=== PATIENT | male | born 1980 | race Caucasian/White ===

== ENCOUNTER 2016-08-24 22:56 | Inpatient (IN) | payer MEDICARE, OTHER ==
--- NOTE | ~2016-08-24 | DS ---
Unit #: [id number] #: [id number] Patient: CLARITA GRIDER [id number] [facility] [address] [place] [address] [id number] I MR#: [id number] NAME: CLARITA GRIDER ROOM: [facility] Age: 35 Sex: M Admission Date: 08/24/2016 : 1980 Discharge Date: 09/05/2016 Attending Physician: Win Webster M.D. Primary Care Physician: Primary Care Physician No DISCHARGE SUMMARY REASON FOR ADMISSION Depression. DIAGNOSTIC STUDIES LABORATORY RESULTS: Unremarkable. HOSPITAL COURSE The patient was admitted to inpatient unit on 08/24/2016 and discharged on 09/05/2016. The patient was treated on the inpatient unit with group therapy, individual therapy, medication management, responded well with the above modalities of treatment. Subsequently, the patient was discharged with a plan to follow up in outpatient program. DISCHARGE MEDICATIONS Keppra 500 mg at bedtime for seizure, Neurontin 300 mg b.i.d. for pain and anxiety, Zoloft 100 mg at bedtime for depression. DISCHARGE DIAGNOSES Psychiatric: 1. Major depressive disorder, recurrent, severe, F32.9. 2. Anxiety disorder, not otherwise specified, F41.9. 3. Agoraphobia with panic disorder, F40.01. Secondary diagnosis: Deferred. Medical diagnosis: History of seizure disorder. Stressors: Psychosocial stressors. DISCHARGE INSTRUCTIONS The patient to follow up in outpatient clinic as per social scientist. CONDITION ON DISCHARGE The patient was pleasant and cooperative. Denied any psychotic symptom or any suicidal ideation. PROGNOSIS Guarded. DIET AND ACTIVITY As tolerated. Dictated by... Unit #: [id number] #: [id number] Patient: CLARITA GRIDER Piper SawantC/yo TD: 09/06/2016 08:01 JOB #: [id number] DISCHARGE SUMMARY Page 1 of 1 X Win Webster MD X DISCHARGE SUMMARY
--- NOTE | ~2016-08-24 | PN ---
Unit #: [id number] #: [id number] Patient: NERI CUNNINGHAM [id number] [facility] [address] [place] [address] [id number] I MR#: [id number] NAME: NERI CUNNINGHAM ROOM: [facility] Age: 35 Sex: M Admission Date: 08/24/2016 : 1980 Attending Physician: Win Webster M.D. Admitting Physician: Win Webster M.D. Primary Care Physician: Primary Care Physician Munira ESPINOZA NOTES DATE 08/28/2016 DISCUSSION Neri Cunningham is a 35-year-old male, seen on 08/28/2016. The patient interviewed, chart reviewed, and obtained information from the nursing staff. The patient was compliant and cooperative. Mood was sad and dysphoric. The patient was able to maintain safe behavior. Vital signs, temperature 97.6, pulse 59, and blood pressure 103/60. The patient is still seclusive, isolative, but maintains safe behavior. REVIEW OF SYSTEMS Complete review of systems unremarkable. MENTAL STATUS EXAMINATION General appearance: Patient casually dressed. Attention span and concentration, fair. Oriented to time, place, and person. Mood and affect, sad and dysphoric. Speech, monotone. Thought process, concrete. Association, the patient denied any thoughts of harming self or others or any psychotic symptoms. Recent and remote memory, poor. Insight and judgment, poor. DIAGNOSIS Mood disorder, NOS. ASSESSMENT/PLAN Advised to continue with the current medication and therapeutic protocol and will monitor response to medication, and make further adjustment of medication. Dictated by... Piper Sawant/rose marie TD: 08/29/2016 09:17 JOB #: [id number] Unit #: [id number] #: [id number] Patient: NERI CUNNINGHAM ALEXIS NOTES X Win Webster MD PROGRESS NOTE
--- NOTE | ~2016-08-24 | PN ---
Unit #: [id number] #: [id number] Patient: NERI CUNNINGHAM [id number] [facility] [address] [place] [address] [id number] I MR#: [id number] NAME: NERI CUNNINGHAM ROOM: [facility] Age: 35 Sex: M Admission Date: 08/24/2016 : 1980 Attending Physician: Win Webster M.D. Admitting Physician: Win Webster M.D. Primary Care Physician: Primary Care Physician Munira ESPINOZA NOTES DATE OF SERVICE: 09/04/2016 DISCUSSION Neri Cunningham is a 35-year-old male, seen on 09/04/2016. The patient interviewed, chart reviewed, and obtained information from nursing staff. The patient was compliant and cooperative. Mood was sad, dysphoric, flat affect, guarded, isolative. Vital signs stable; temperature 97.9, pulse 52, and blood pressure 105/71. The patient reports making progress, decrease in anxiety and depression. Complete review of systems unremarkable. MENTAL STATUS EXAMINATION General appearance; the patient dressed casually, in hospital attire. Hygiene and grooming were somewhat poor. Attention span and concentration, fair. Oriented in place and person. Mood and affect; sad, depressed. Speech, regular rate. Thought process, goal directed. The patient denied any thoughts of harming self or others or any psychotic symptom. Recent and remote memory, poor. Insight and judgment, poor. DIAGNOSIS Major depressive disorder, recurrent. ASSESSMENT AND PLAN Advised to continue with current medication and therapeutic protocol with a plan to consider discharge next week and follow up in [facility] level of care. Dictated by... Piper Sawant/yo TD: 09/05/2016 13:33 JOB #: [id number] Unit #: [id number] #: [id number] Patient: NERI CUNNINGHAM PROGRESS NOTES Page 1 of 1 X Win Webster MD PROGRESS NOTE
--- NOTE | ~2016-08-24 | PN ---
Unit #: [id number] #: [id number] Patient: CLARITA GRIDER [id number] [facility] [address] [place] [address] [id number] I MR#: [id number] NAME: CLARITA GRIDER ROOM: [facility] Age: 35 Sex: M Admission Date: 08/24/2016 : 1980 Attending Physician: Win Webster M.D. Admitting Physician: Win Webster M.D. Primary Care Physician: Primary Care Physician Munira ESPINOZA NOTES DATE OF SERVICE: 08/30/2016 DISCUSSION Mr. He is a 35-year-old male, seen on 08/30/2016. The patient interviewed, chart reviewed, and obtained information from nursing staff. The patient's vital signs; temperature 97.7, pulse 54, respirations 20, and blood pressure 101/69. The patient reported occasional suicidal ideation with no plan. The patient has no place to go. Reported feeling sad and depressed. The patient was able to maintain safe behavior, withdrawn, isolative. Complete review of systems unremarkable. MENTAL STATUS EXAMINATION General appearance, the patient dressed casually. Attention span and concentration, fair. Oriented in time, place, and person. Mood and affect were sad, dysphoric, flat. Speech, regular rate. Thought process, goal directed. The patient denied any thoughts of harming others, but having occasional suicidal ideation, guarded, withdrawn, isolative. Recent and remote memory, poor. Insight and judgment, poor. DIAGNOSIS Major depressive disorder, recurrent. ASSESSMENT AND PLAN Advised to continue with current medication and therapeutic protocol. We will monitor response to medication and make further adjustment of medication such as increasing the dosage of Zoloft. Dictated by... Piper Sawant/yo TD: 08/30/2016 18:42 JOB #: [id number] Unit #: [id number] #: [id number] Patient: CLARITA GRIDER PROGRESS NOTES X Win Webster MD PROGRESS NOTE
--- NOTE | ~2016-08-24 | PN ---
Unit #: [id number] #: [id number] Patient: NERI CUNNINGHAM [id number] [facility] [address] [place] [address] [id number] I MR#: [id number] NAME: NERI CUNNINGHAM ROOM: [facility] Age: 35 Sex: M Admission Date: 08/24/2016 : 1980 Attending Physician: Win Webster M.D. Admitting Physician: Win Webster M.D. Primary Care Physician: Primary Care Physician Munira ESPINOZA NOTES DATE OF SERVICE: 09/02/2016 DISCUSSION Neri Cunningham is a 35-year-old male, seen on 09/02/2016. The patient interviewed, chart reviewed, and obtained information from nursing staff. The patient was compliant and cooperative. Mood was sad, dysphoric, flat affect, guarded. The patient is tolerating medication fairly well. REVIEW OF SYSTEMS Complete review of systems unremarkable. MENTAL STATUS EXAMINATION General appearance, the patient dressed casually, withdrawn, isolative, guarded. Attention span and concentration, poor. Oriented in place and person. Mood and affect, sad, and depressed. Speech, monotone. Thought process, concrete. The patient reported passive SI, but denied any plan. Denied any homicidal ideation or psychotic symptom. Recent and remote memory, poor. Insight and judgment, poor. DIAGNOSIS Major depressive disorder, recurrent. ASSESSMENT AND PLAN Advised to continue with current medication and therapeutic protocol. If needed, consider further adjustment of medication. Dictated by... Piper Sawant/yo TD: 09/03/2016 05:22 JOB #: [id number] Unit #: [id number] #: [id number] Patient: NERI CUNNINGHAM REJIAMBER PROGRESS NOTES X Win Webster MD PROGRESS NOTE
--- NOTE | ~2016-08-24 | PN ---
Unit #: [id number] #: [id number] Patient: NERI GRIDER [id number] [facility] [address] [place] [address] [id number] I MR#: [id number] NAME: NERI GRIDER ROOM: [facility] Age: 35 Sex: M Admission Date: 08/24/2016 : 1980 Attending Physician: Win Webster M.D. Admitting Physician: Win Webster M.D. Primary Care Physician: Primary Care Physician Munira ESPINOZA NOTES DATE OF SERVICE: 08/26/2016 DISCUSSION Neri is a 35-year-old male, seen on 08/26/2016. The patient interviewed, chart reviewed, and obtained information from nursing staff. The patient was compliant and cooperative. Mood, sad and dysphoric. Flat affect and guarded. The patient was sad, dysphoric, anxious, isolative, withdrawn, and nervous. REVIEW OF SYSTEMS Complete review of systems unremarkable. MENTAL STATUS EXAMINATION General appearance, the patient dressed casually. Attention span and concentration, fair. Oriented in place and person. Mood and affect, sad and dysphoric. Speech, monotone. Thought process, concrete. The patient denied any thoughts of harming self or others, but guarded, withdrawn, and seclusive. Recent and remote memory, poor. Insight and judgment, poor. DIAGNOSES Mood disorder, not otherwise specified; rule bipolar mood disorder; and anxiety disorder, not otherwise specified. ASSESSMENT AND PLAN Advised to continue with current medication and therapeutic protocol. We will monitor response to medication and make further adjustment of medication. Dictated by... Piper Sawant/yo TD: 08/27/2016 16:06 JOB #: [id number] Unit #: [id number] #: [id number] Patient: NERI GRIDER PROGRESS NOTES X Win Webster MD PROGRESS NOTE
--- NOTE | ~2016-08-24 | PN ---
Unit #: [id number] #: [id number] Patient: NERI CUNNINGHAM [id number] [facility] [address] [place] [address] [id number] I MR#: [id number] NAME: NERI CUNNINGHAM ROOM: [facility] Age: 35 Sex: M Admission Date: 08/24/2016 : 1980 Attending Physician: Win Webster M.D. Admitting Physician: Win Webster M.D. Primary Care Physician: Primary Care Physician Munira BROWN PROGRESS NOTES DATE 08/29/2016 DISCUSSION Neri Cunningham is a 35-year-old male seen on 08/29/2016. Patient interviewed. Chart reviewed. Obtained information from nursing staff. Patient continues to be sad, depressed, withdrawn, isolative, guarded. Patient continues to stay in room, isolate, minimal interaction with staff and peer. Mood sad, depressed, flat affect, guarded. Complete review of system unremarkable. MENTAL STATUS EXAMINATION General appearance, patient dressed casually. Attention span, concentration fair. Oriented in place and person. Mood and affect sad, depressed. Speech monotone. Thought process concrete. Patient reported having passive SI. Denied any homicidal ideation, withdrawn, guarded. Recent and remote memory poor. Insight and judgement poor. DIAGNOSIS Major depressive disorder, recurrent. ASSESSMENT/PLAN Continue with current medication. If needed, consider adjusting the dosage of Zoloft. Dictated by... Piper Sawant/mckenzie TD: 08/30/2016 20:44 JOB #: [id number] Unit #: [id number] #: [id number] Patient: NERI CUNNINGHAM PROGRESS NOTES X Win Webster MD PROGRESS NOTE
--- NOTE | ~2016-08-24 | PN ---
Unit #: [id number] #: [id number] Patient: NERI CUNNINGHAM [id number] [facility] [address] [place] [address] [id number] I MR#: [id number] NAME: NERI CUNNINGHAM ROOM: [facility] Age: 35 Sex: M Admission Date: 08/24/2016 : 1980 Attending Physician: Win Webster M.D. Admitting Physician: Win Webster M.D. Primary Care Physician: Primary Care Physician Munira BROWN PROGRESS NOTES DATE 09/01/2016 DISCUSSION Neri Cunningham is a 35-year-old male seen on 09/01/2016. Patient interviewed. Chart reviewed. Obtained information from nursing staff. Patient continues to report feeling sad, depressed, having suicidal thoughts. Denies any plans. Tolerating medication fairly well. Zoloft was increased yesterday. Withdrawn, isolative, guarded. Complete review of system unremarkable. MENTAL STATUS EXAMINATION General appearance, patient dressed casually. Attention span, concentration fair. Oriented in place and person. Mood and affect sad, dysphoric. Speech monotone. Thought process concrete. Patient denied any thoughts of harming others but still having thoughts of harming himself, passive. Recent and remote memory poor. Insight and judgement poor. DIAGNOSIS Mood disorder NOS. ASSESSMENT/PLAN Advised to continue with current medication and therapeutic protocol. Will monitor response to medication and make further adjustment of medication. Dictated by... Piper Sawant/mckenzie TD: 09/02/2016 19:50 JOB #: [id number] Unit #: [id number] #: [id number] Patient: NERI CUNNINGHAM PROGRESS NOTES X Win Webster MD X PROGRESS NOTE
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
--- NOTE | ~2016-08-24 | PN ---
Unit #: [id number] #: [id number] Patient: NERI CUNNINGHAM [id number] [facility] [address] [place] [address] [id number] I MR#: [id number] NAME: NERI CUNNINGHAM ROOM: [facility] Age: 35 Sex: M Admission Date: 08/24/2016 : 1980 Attending Physician: Win Webster M.D. Admitting Physician: Win Webster M.D. Primary Care Physician: Primary Care Physician Munira BROWN PROGRESS NOTES DATE OF SERVICE: 08/27/2016 DISCUSSION Neri Cunningham is a 35-year-old male, seen on 08/27/2016. The patient interviewed, chart reviewed, and obtained information from nursing staff. The patient was compliant and cooperative. Mood was sad, dysphoric, flat affect, withdrawn, isolative. Hygiene and grooming were somewhat poor. Dressed in hospital attire. Vital signs; temperature 98.2, pulse 70, respirations 16, blood pressure 102/70. The patient was participated in some of the group, but seclusive, isolative, guarded, flat affect, withdrawn. Poor interaction with staff and peer. Passive SI. Denied any psychotic symptom or any homicidal ideation. Insight and judgment, impaired. DIAGNOSIS Major depressive disorder, recurrent. ASSESSMENT AND PLAN Advised to continue with current medication and therapeutic protocol. We will monitor response to medication and make further adjustment of medication. Dictated by... Piper Sawant/yo TD: 08/29/2016 02:08 JOB #: [id number] STEPHANIE PROGRESS NOTES X Win Webster MD PROGRESS NOTE
--- NOTE | ~2016-08-24 | PN ---
Unit #: [id number] #: [id number] Patient: NERI CUNNINGHAM [id number] [facility] [address] [place] [address] [id number] I MR#: [id number] NAME: NERI CUNNINGHAM ROOM: [facility] Age: 35 Sex: M Admission Date: 08/24/2016 : 1980 Attending Physician: Win Webster M.D. Admitting Physician: Win Webster M.D. Primary Care Physician: Primary Care Physician Munira BROWN PROGRESS NOTES DATE 09/03/2016 DISCUSSION Neri Cunningham is a 35-year-old male seen on 09/03/2016. The patient interviewed, chart reviewed. Obtained information from nursing staff. The patient was compliant and cooperative. Mood sad, dysphoric, flat affect, withdrawn, sad depressed. Complete review of systems unremarkable. MENTAL STATUS EXAMINATION General appearance, the patient dressed casually. Attention span and concentration fair. Oriented to place and person. Mood and affect sad, depressed. Speech monotone. Thought process concrete. The patient denied any thoughts of harming self or others but still having passive SI, poor hygiene and grooming. Recent and remote memory poor. Insight and judgement poor. DIAGNOSES Major depressive disorder recurrent ASSESSMENT/PLAN Advise to continue with current medication and therapeutic protocol. We will monitor response to medication and make further adjustment of medication. Dictated by... Piper Sawant/bunny TD: 09/05/2016 03:01 JOB #: [id number] Unit #: [id number] #: [id number] Patient: NERI CUNNINGHAM PROGRESS NOTES X Win Webster MD PROGRESS NOTE
--- NOTE | ~2016-08-24 | PN ---
Unit #: [id number] #: [id number] Patient: NERI CUNNINGHAM [id number] [facility] [address] [place] [address] [id number] I MR#: [id number] NAME: NERI CUNNINGHAM ROOM: [facility] Age: 35 Sex: M Admission Date: 08/24/2016 : 1980 Attending Physician: Win Webster M.D. Admitting Physician: Win Webster M.D. Primary Care Physician: Primary Care Physician Munira BROWN PROGRESS NOTES DATE 08/31/2016 DISCUSSION Neri Cunningham is a 35-year-old male, seen on 08/31/2016. The patient interviewed, chart reviewed, and obtained information from the nursing staff. The patient continues to be sad, dysphoric, flat affect, withdrawn, isolative, and guarded. The patient reported still having suicidal ideation. REVIEW OF SYSTEMS Complete review of systems unremarkable. MENTAL STATUS EXAMINATION General appearance: Patient casually dressed. Attention span and concentration, fair. Oriented to time, place, and person. Mood and affect, sad and depressed. Speech, monotone. Thought process, concrete. Association, the patient reported having suicidal ideation, denied any plans, guarded but denied any psychotic symptoms. Recent and remote memory, poor. Insight and judgment, poor. DIAGNOSIS Mood disorder, NOS. ASSESSMENT/PLAN Advised to increase the Zoloft to 75 mg daily, continue with the inpatient programming, if needed consider further adjustment of medication. Dictated by... Piper Sawant/rose marie TD: 09/01/2016 12:53 JOB #: [id number] Unit #: [id number] #: [id number] Patient: NERI CUNNINGHAM PROGRESS NOTES X Win Webster MD PROGRESS NOTE
--- NOTE | ~2016-08-24 | PN ---
Unit #: [id number] #: [id number] Patient: NERI GRIDER [id number] [facility] [address] [place] [address] [id number] MR#: [id number] NAME: NERI GRIDER ROOM: [facility] Age: 35 Sex: M Admission Date: 08/24/2016 : 1980 Attending Physician: Win Webster M.D. Admitting Physician: Win Webster M.D. Primary Care Physician: Primary Care Physician Munira BROWN PROGRESS NOTES DATE 08/25/2016 DISCUSSION Neri is a 35-year-old male seen on 08/25/2016. Patient interviewed. Chart reviewed. Obtained information from nursing staff. Patient was compliant, cooperative. Mood sad, dysphoric, anxious, nervous, sad, depressed, withdrawn. Complete review of system unremarkable. MENTAL STATUS EXAMINATION General appearance, patient dressed casually. Attention span, concentration fair. Oriented in place and person. Mood and affect sad, dysphoric. Speech monotone. Thought process concrete. Patient denied any thoughts of harming self or others or any psychotic symptoms but withdrawn, isolative, guarded. Recent and remote memory poor. Insight and judgement poor. DIAGNOSIS Major depressive disorder, recurrent. ASSESSMENT/PLAN Advised to continue with current medication with plan to start patient on Zoloft 50 mg daily. If needed, consider further adjustment of medication. Dictated by... Piper Sawant/mckenzie TD: 08/26/2016 17:59 JOB #: [id number] Unit #: [id number] #: [id number] Patient: NERI GRIDER STEPHANIE PROGRESS NOTES X Win Webster MD PROGRESS NOTE
--- NOTE | ~2016-08-24 | HP ---
Unit #: [id number] #: [id number] Patient: NERI GRIDER [id number] [place] [address] [id number] MR#: [id number] NAME: NERI GRIDER ROOM: 61 Age: 35 Sex: M Admission Date: 08/24/2016 : 1980 Attending Physician: Win Webster M.D. Admitting Physician: Win Webster M.D. Primary Care Physician: Primary Care Physician No HISTORY AND PHYSICAL HISTORY OF PRESENT ILLNESS Neri is a 35 year old admitted to [address] [place] [address] with depression verbalizing wanting to hurt himself. PAST MEDICAL HISTORY Seizure disorder. PAST SURGICAL HISTORY Cholecystectomy. ALLERGIES Penicillin, Keflex. SOCIAL HISTORY He smokes greater than 1 pack per day. Drinks alcohol on occasion. Denies illicit drug use. FAMILY HISTORY Medically noncontributory. REVIEW OF SYSTEMS CONSTITUTIONAL: No fever or chills. HEENT: Denies any sore throat, ear pain or runny nose. CARDIOVASCULAR: Denies chest pain, irregular heart rhythm or palpitations. CHEST: Denies shortness of breath or cough. No hemoptysis. GASTROINTESTINAL: Denies nausea, vomiting, diarrhea or chronic constipation. ENDOCRINE: Denies history of increased thirst or urination. No recent significant weight loss or gain. GENITOURINARY: Denies dysuria, frequency, or hematuria. SKIN: Denies any rashes. HEMATOLOGIC: Denies history of increased bleeding or bruising. MUSCULOSKELETAL: Denies any hot, swollen joints. No generalized muscle pain. NEUROLOGIC: Denies problems with vision or speech. No frequent, severe headaches. No numbness, tingling or weakness in any extremities. Denies loss of bladder or bowel control. CURRENT MEDICATIONS 1. Zoloft 50 mg q.a.m. 2. Neurontin 300 mg b.i.d. 3. Nicotine patch 14 mg daily. 4. Milk of Magnesia p.r.n. Unit #: [id number] #: [id number] Patient: NERI GRIDER 5. Maalox p.r.n. 6. Tylenol p.r.n. 7. Keppra 500 mg q.h.s. PHYSICAL EXAMINATION GENERAL: Alert, well-nourished, in no apparent distress. VITAL SIGNS: Blood pressure 100/62, heart rate 80, respirations 16, temperature 98.6. WEIGHT: 185. HEIGHT: 5 feet 9 inches. SKIN: Warm and dry without rash or lesion. HEENT: Normocephalic. TMs not viewed. Oral and nasal passages clear. Conjunctivae clear. PERRLA. EOMs intact. NECK: Supple without lymphadenopathy or thyromegaly. HEART: Regular rate and rhythm without murmur. LUNGS: Clear. ABDOMEN: Soft, nontender. : Not done. EXTREMITIES: No evidence of cyanosis, clubbing or edema. Moves all without focal deficit. NEUROLOGICAL: Grossly within normal limits. Cranial Nerves: II: Visual dempsey are intact. III, IV AND : Extraocular movements are intact. Pupils are equal, round and reactive to light. V: Facial sensation is grossly normal. VII: Facial movements and expression are normal. VIII: Auditory acuity grossly intact. IX, X: Uvula is midline. Phonation is normal. XI: Patient shrugs shoulders and turns head normally. XII: Tongue protrudes in the midline. Sensory and Motor Function: Sensory and motor sensation is grossly normal. Motor: moves all extremities well. Coordination: Gait is normal. Deep Tendon Reflexes: Intact. IMPRESSION Psychiatric admission. RECOMMENDATIONS PSYCHIATRIC: Per psychiatrist. MEDICAL: See no contraindications to participate in facility's activities. MEDICAL PROGNOSIS Good. MEDICAL CONDITION Stable. Dictated by... Marilyn Maharaj P.A.-C. for Piper Barahona/mckenzie TD: 08/25/2016 18:00 JOB #: [id number] Unit #: [id number] #: [id number] Patient: NERI GRIDER HISTORY AND PHYSICAL X Marilyn Maharaj HISTORY AND PHYSICAL
== END 2016-09-05 10:45 | DRG 885 ==
LOC: P2L 22:56 → POF 08-26 15:25 → P2L 08-26 15:31
DX: F33.2 Major depressive disorder, recurrent severe without psychotic features (principal); G40.909 Epilepsy, unspecified, not intractable, without status epilepticus; F41.9 Anxiety disorder, unspecified; F40.01 Agoraphobia with panic disorder; F17.210 Nicotine dependence, cigarettes, uncomplicated; Z88.0 Allergy status to penicillin

== ENCOUNTER 2016-11-06 12:00 | Inpatient (IN) | payer OTHER ==
--- NOTE | ~2016-11-06 | PN ---
Unit #: [id number] #: [id number] Patient: NERI CUNNINGHAM [id number] [facility] [address] [place] [address] [id number] I MR#: [id number] NAME: NERI CUNNINGHAM ROOM: [facility] Age: 35 Sex: M Admission Date: 11/06/2016 : 1980 Attending Physician: Win Webster M.D. Admitting Physician: Win Webster M.D. Primary Care Physician: Primary Care Physician Munira ESPINOZA NOTES DATE OF SERVICE: 11/10/2016 DISCUSSION Neri Cunningham is a 35-year-old male, seen on 11/10/2016. The patient interviewed, chart reviewed, and obtained information from nursing staff. The patient continues to be sad, depressed, withdrawn, isolative, flat affect. Reported still having suicidal ideation, compliant with medication. Complete review of systems unremarkable. MENTAL STATUS EXAMINATION General appearance, the patient dressed casually. Attention span and concentration, fair. Oriented in time, place, and person. Mood and affect; sad, depressed, withdrawn, isolative, guarded. Speech, monotone. Thought process, concrete. The patient reported having suicidal ideation, flat affect, sad, dysphoric mood. Insight and judgment, fair to poor. DIAGNOSES 1. Major depressive disorder, recurrent, severe. 2. Alcohol use disorder, severe. ASSESSMENT AND PLAN Advised to continue with current medication and therapeutic protocol. If needed, consider further adjustment of medication. Dictated by... Piper Sawant/yo TD: 11/11/2016 09:34 JOB #: [id number] Unit #: [id number] #: [id number] Patient: NERI CUNNINGHAM PROGRESS NOTES Page 1 of 1 X Win Webster MD PROGRESS NOTE
--- NOTE | ~2016-11-06 | PN ---
Unit #: [id number] #: [id number] Patient: NERI GRIDER [id number] [facility] [address] [place] [address] [id number] I MR#: [id number] NAME: NERI GRIDER ROOM: P210 Age: 35 Sex: M Admission Date: 11/06/2016 : 1980 Attending Physician: Win Webster M.D. Admitting Physician: Win Webster M.D. Primary Care Physician: Munira Primary Care Physician STEPHANIE PROGRESS NOTES DATE 11/14/2016 DISCUSSION Neri is a 35-year-old male, seen on 11/14/2016. The patient interviewed, chart reviewed, and obtained information from nursing staff. Patient compliant, cooperative, withdrawn, isolative. Flat affect. Sad, dysphoric, and anxious, but able to maintain safe behavior. Patient tolerating medication fairly well. Increased participation group, but still isolative and guarded. REVIEW OF SYSTEMS Complete review of system unremarkable. MENTAL STATUS EXAMINATION General appearance, the patient dressed in hospital attire. Attention span and concentration, fair. Oriented in place and person. Mood and affect, sad, depressed, withdrawn. Speech, monotone. Thought process, concrete. The patient reported passive SI but denied any plan. Denied any homicidal ideation, withdrawn, flat, sad dysphoric, seclusive. Recent and remote memory, poor. Insight and judgment, poor. DIAGNOSES 1. Mood disorder, NOS. 2. Alcohol use disorder, severe. ASSESSMENT AND PLAN Advised to continue with current medication and therapeutic protocol. If needed, consider further adjustment of medication. Dictated by... Piper Sawant/joaquin TD: 11/15/2016 12:39 JOB #: [id number] Unit #: [id number] #: [id number] Patient: NERI GRIDER PEAAMBER PROGRESS NOTES Page 1 of 1 X Win Webster MD PROGRESS NOTE
--- NOTE | ~2016-11-06 | DS ---
Unit #: [id number] #: [id number] Patient: CLARITA GRIDER [id number] [place] [address] [id number] I MR#: [id number] NAME: CLARITA GRIDER ROOM: [facility] Age: 35 Sex: M Admission Date: 11/06/2016 : 1980 Discharge Date: 11/15/2016 Attending Physician: Win Webster M.D. Primary Care Physician: Primary Care Physician No DISCHARGE SUMMARY REASON FOR ADMISSION Depression and substance abuse. DIAGNOSTIC STUDIES LABORATORY RESULTS: Remarkable for a glucose of 125 and total protein 5.8. HOSPITAL COURSE The patient was admitted to inpatient unit on 11/06/2016 and discharged on 11/15/2016. The patient was treated on the inpatient unit with group therapy, individual therapy, medication management, expressive therapy, and structured milieu. The patient responded well with the above modalities of treatment, detox protocol, and detox monitoring. Subsequently, the patient was discharged with a plan to follow up in outpatient program. DISCHARGE MEDICATIONS Keppra 500 mg daily for seizure, Zoloft 100 mg daily for depression, vitamin B t.i.d. supplement, Protonix 40 mg daily for GERD, and Neurontin 300 mg b.i.d. for seizures. DISCHARGE DIAGNOSES Psychiatric: 1. Major depressive disorder, recurrent, severe, F33.2. 2. Anxiety disorder, not otherwise specified, F41.9. 3. Agoraphobia with panic disorder, F40.01. 4. Alcohol use disorder, moderate to severe, F10.20. Secondary diagnosis: Deferred. Medical diagnoses: History of seizure disorder, gastroesophageal reflux disease. Stressors: Psychosocial stressors. DISCHARGE INSTRUCTIONS The patient is to follow up in outpatient clinic as per social work lecturer. CONDITION ON DISCHARGE The patient was pleasant and cooperative. Denied any psychotic symptom or any suicidal ideation. PROGNOSIS Guarded. Unit #: [id number] #: [id number] Patient: CLARITA GRIDER DIET AND ACTIVITY As tolerated. Dictated by... Win Webster M.D. TONI/yo TD: 11/15/2016 23:09 JOB #: [id number] DISCHARGE SUMMARY Page 1 of 1 X Win Webster MD DISCHARGE SUMMARY
--- NOTE | ~2016-11-06 | HP ---
Unit #: [id number] #: [id number] Patient: NERI GRIDER [id number] [place] [address] [id number] I MR#: [id number] NAME: NERI GRIDER ROOM: P210 Age: 35 Sex: M Admission Date: 11/06/2016 : 1980 Attending Physician: Win eWbster M.D. Admitting Physician: Win Webster M.D. Primary Care Physician: Primary Care Physician No HISTORY AND PHYSICAL HISTORY OF PRESENT ILLNESS Neri is a 35 year old admitted to [address] [place] [address] because of his continued abuse of alcohol. He has had other admissions to this facility for the same. PAST MEDICAL HISTORY 1. Long history of alcohol abuse. 2. Seizure disorder. PAST SURGICAL HISTORY Cholecystectomy ALLERGIES Penicillin, Keflex. SOCIAL HISTORY Smokes one pack per day. Drinks alcohol on a daily basis and denies illicit drug use. FAMILY HISTORY Medically noncontributory. REVIEW OF SYSTEMS CONSTITUTIONAL: No fever or chills. HEENT: Denies any sore throat, ear pain or runny nose. CARDIOVASCULAR: Denies chest pain, irregular heart rhythm or palpitations. CHEST: Denies shortness of breath or cough. No hemoptysis. GASTROINTESTINAL: Denies nausea, vomiting, diarrhea or chronic constipation. ENDOCRINE: Denies history of increased thirst or urination. No recent significant weight loss or gain. GENITOURINARY: Denies dysuria, frequency, or hematuria. SKIN: Denies any rashes. HEMATOLOGIC: Denies history of increased bleeding or bruising. MUSCULOSKELETAL: Denies any hot, swollen joints. No generalized muscle pain. NEUROLOGIC: Denies problems with vision or speech. No frequent, severe headaches. No numbness, tingling or weakness in any extremities. Denies loss of bladder or bowel control. CURRENT MEDICATIONS 1. Detox protocol 2. Neurontin 300 mg b.i.d. Unit #: [id number] #: [id number] Patient: NERI GRIDER 3. Keppra 500 mg q day PHYSICAL EXAMINATION GENERAL: Alert, well-nourished, in no apparent distress. VITAL SIGNS: Blood pressure 110/70, heart rate 80, respirations 16, temperature 98.6. WEIGHT: 182 pounds. HEIGHT: 5'9". SKIN: Warm and dry without rash or lesion. HEENT: Normocephalic. TMs not viewed. Oral and nasal passages clear. Conjunctivae clear. Pupils equal, round and reactive to light and accommodation. Extraocular movements intact. NECK: Supple without lymphadenopathy or thyromegaly. HEART: Regular rate and rhythm without murmur. LUNGS: Clear. ABDOMEN: Soft, nontender. : Not done. EXTREMITIES: No evidence of cyanosis, clubbing or edema. Moves all extremities without focal deficit. NEUROLOGICAL: Grossly within normal limits. Cranial Nerves: II: Visual dempsey are intact. III, IV AND : Extraocular movements are intact. Pupils are equal, round and reactive to light. V: Facial sensation is grossly normal. VII: Facial movements and expression are normal. VIII: Auditory acuity grossly intact. IX, X: Uvula is midline. Phonation is normal. XI: Patient shrugs shoulders and turns head normally. XII: Tongue protrudes in the midline. Sensory and Motor Function: Sensory and motor sensation is grossly normal. Motor: moves all extremities well. Coordination: Gait is normal. Deep Tendon Reflexes: Intact. IMPRESSION Psychiatric admission RECOMMENDATIONS PSYCHIATRIC: Per psychiatrist. MEDICAL: I see no contraindications to participating in facility's activities. MEDICAL PROGNOSIS Good. MEDICAL CONDITION Stable. Dictated by... Marilyn Maharaj PKassandraAKassandra-Carlie. for Piper Barahona/bunny TD: 11/07/2016 22:24 JOB #: [id number] Unit #: [id number] #: [id number] Patient: NERI GRIDER HISTORY AND PHYSICAL Page 1 of 1 X Marilyn Maharaj HISTORY AND PHYSICAL
--- NOTE | ~2016-11-06 | PN ---
Unit #: [id number] #: [id number] Patient: NERI CUNNINGHAM [id number] [facility] [address] [place] [address] [id number] I MR#: [id number] NAME: NERI CUNNINGHAM ROOM: [facility] Age: 35 Sex: M Admission Date: 11/06/2016 : 1980 Attending Physician: Win Webster M.D. Admitting Physician: Win Webster M.D. Primary Care Physician: Munira Primary Care Physician STEPHANIE ESPINOZA NOTES DATE OF SERVICE 11/09/16 DISCUSSION Neri Cunningham is a 35-year-old male seen on 11/09/16. Patient interviewed, chart reviewed, and obtained information from nursing staff. Patient tolerating medication fairly well. No side effects from medication. Patient's vital signs: 97.9, 75, and 105/65. Still reporting feeling sad, depression, and suicidal ideation, seclusive, and isolative. REVIEW OF SYSTEMS Complete review of systems unremarkable. MENTAL STATUS EXAMINATION GENERAL APPEARANCE: Patient dressed casually. ATTENTION SPAN AND CONCENTRATION: Fair. ORIENTATION: Oriented in time, place, and person. MOOD AND AFFECT: Sad, depressed. SPEECH: Monotone. THOUGHT PROCESS: [place]. Patient reported having suicidal ideation. Flat, sad, dysphoric and withdrawn. RECENT AND REMOTE MEMORY: Poor. INSIGHT AND JUDGEMENT: Poor. DIAGNOSES 1. Mood disorder, NOS. 2. Alcohol use disorder, moderate. ASSESSMENT/PLAN Advised to continue with current medication and therapeutic protocol. If needed, consider further adjustment of medication. Dictated by... Piper Sawant/jordi TD: 11/11/2016 13:14 JOB #: [id number] Unit #: [id number] #: [id number] Patient: NERI CUNNINGHAM PROGRESS NOTES Page 1 of 1 X Win Webster MD PROGRESS NOTE
--- NOTE | ~2016-11-06 | PN ---
Unit #: [id number] #: [id number] Patient: NERI CUNNINGHAM [id number] [facility] [address] [place] [address] [id number] I MR#: [id number] NAME: NERI CUNNINGHAM ROOM: [facility]0 Age: 35 Sex: M Admission Date: 11/06/2016 : 1980 Attending Physician: Win Webster M.D. Admitting Physician: Win Webster M.D. Primary Care Physician: Primary Care Physician Munira ESPINOZA NOTES DATE OF SERVICE: 11/08/2016 DISCUSSION Neri Cunningham is a 35-year-old male, seen on 11/08/2016. The patient interviewed, chart reviewed, and obtained information from nursing staff. The patient dressed casually in hospital attire. Mood is sad and dysphoric. Flat affect and guarded. The patient reports that he is not feeling well. Still feeling sad, depressed, suicidal ideation, guarded, withdrawn, isolative, anxiety, and sweats. REVIEW OF SYSTEMS Complete review of systems unremarkable. MENTAL STATUS EXAMINATION General appearance, the patient dressed in hospital attire. Attention span and concentration, fair. Oriented in place and person. Mood and affect, labile. Speech, monotone. Thought process, goal directed. The patient denied any homicidal ideation, but suicidal ideation and guarded. Recent and remote memory, poor. Insight and judgment, poor. DIAGNOSES Mood disorder, not otherwise specified and alcohol use disorder, moderate. ASSESSMENT AND PLAN Advised to continue with current medication and therapeutic protocol. If needed, consider further adjustment of medication. The patient is currently on combination of Neurontin, Protonix, Zoloft, Keppra, and detox monitoring. Dictated by... Piper Sawant/lesvial TD: 11/08/2016 16:07 JOB #: [id number] Unit #: [id number] #: [id number] Patient: NERI CUNNINGHAM PROGRESS NOTES Page 1 of 1 X Win Webster MD X PROGRESS NOTE
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
--- NOTE | ~2016-11-06 | PN ---
Unit #: [id number] #: [id number] Patient: NERI CUNNINGHAM [id number] [facility] [address] [place] [address] [id number] MR#: [id number] NAME: NERI CUNNINGHAM ROOM: [facility] Age: 35 Sex: M Admission Date: 11/06/2016 : 1980 Attending Physician: Win Webster M.D. Admitting Physician: Piper Sawant PROGRESS NOTES DATE OF SERVICE: 11/12/2016 DISCUSSION Neri Cunningham is a 35-year-old male, seen on 11/12/2016. The patient interviewed, chart reviewed, and obtained information from nursing staff. The patient still reporting feeling sad, depressed, and flat affect. Vital signs stable. Withdrawn, isolative, and passive SI. REVIEW OF SYSTEMS Complete review of systems unremarkable. MENTAL STATUS EXAMINATION General appearance, the patient dressed in hospital attire. Attention span and concentration, poor. Oriented in place and person. Mood and affect, sad and depressed. Speech, monotone. Thought process, concrete. The patient reported passive SI. Denied any homicidal ideation. Withdrawn, isolative, and guarded. Recent and remote memory, poor. Insight and judgment, poor. DIAGNOSES Major depressive disorder, recurrent, severe and alcohol use disorder, severe. ASSESSMENT AND PLAN Advised to continue with current medication and therapeutic protocol. If needed, consider further adjustment of medication. Dictated by... Piper Sawant/yo TD: 11/13/2016 19:49 JOB #: [id number] Unit #: [id number] #: [id number] Patient: NERI CUNNINGHAM PROGRESS NOTES Page 1 of 1 X Win Webster MD PROGRESS NOTE
--- NOTE | ~2016-11-06 | PN ---
Unit #: [id number] #: [id number] Patient: NERI CUNNINGHAM [id number] [facility] [address] [place] [address] [id number] I MR#: [id number] NAME: NERI CUNNINGHAM ROOM: [facility] Age: 35 Sex: M Admission Date: 11/06/2016 : 1980 Attending Physician: Win Webster M.D. Admitting Physician: Win Webster M.D. Primary Care Physician: Primary Care Physician Munira BROWN PROGRESS NOTES DATE 11/11/2016 DISCUSSION Neri Cunningham is a 35-year-old male seen on 11/11/2016. Patient interviewed. Chart reviewed. Obtained information from nursing staff. Patient compliant, cooperative. Mood sad, dysphoric, flat affect, guarded. Patient reported that he is still having suicidal ideation, sad, depressed mood, isolative, guarded, flat affect. Mood was irritable but no aggressive behavior. Participated in some group. Complete review of system unremarkable. MENTAL STATUS EXAMINATION General appearance, patient dressed casually. Attention span, concentration fair. Oriented in place and person. Mood and affect sad, depressed. Speech monotone. Thought process concrete, withdrawn, isolative, guarded. Passive suicidal ideation. Denied any plan. Recent and remote memory poor. Insight and judgement poor. DIAGNOSES 1. Major depressive disorder, recurrent, severe. 2. Alcohol use disorder, severe. ASSESSMENT/PLAN Advised to continue with current precautions and continue with current medication. If needed, consider further adjustment of medication. Dictated by... Piper Sawant/mckenzie TD: 11/12/2016 21:11 JOB #: [id number] Unit #: [id number] #: [id number] Patient: NERI CUNNINGHAM PROGRESS NOTES Page 1 of 1 X Win Webster MD X PROGRESS NOTE
--- NOTE | ~2016-11-06 | PN ---
Unit #: [id number] #: [id number] Patient: NERI CUNNINGHAM [id number] [facility] [address] [place] [address] [id number] I MR#: [id number] NAME: NERI CUNNINGHAM ROOM: [facility] Age: 35 Sex: M Admission Date: 11/06/2016 : 1980 Attending Physician: Win Webster M.D. Admitting Physician: Win Webster M.D. Primary Care Physician: Primary Care Physician Munira ESPINOZA NOTES DATE 11/07/2016 DISCUSSION Mr. Neri Cunningham is a 35-year-old male, seen on 11/07/2016. The patient interviewed, chart reviewed, and obtained information from the nursing staff. The patient was compliant and cooperative during the interview. Mood sad and depressed, feelings of hopelessness, worthlessness, withdrawn, isolative. REVIEW OF SYSTEMS Complete review of systems unremarkable. The patient's vital signs, 98.1, 69, 111/69. MENTAL STATUS EXAMINATION General appearance: Patient dressed casually. Attention span and concentration, fair. Oriented to place and person. Mood and affect, sad and depressed. Speech, monotone. Thought process, concrete. The patient reported having suicidal ideation, but denied any homicidal ideation, guarded, isolative. Recent and remote memory, poor. Insight and judgment, poor. DIAGNOSES 1. Major depressive disorder, recurrent, moderate. 2. Alcohol use disorder, moderate. ASSESSMENT/PLAN Advised to continue with the current medication and therapeutic protocol, and if needed consider further adjustment of medication, and add Protonix 40 mg daily for GERD symptoms. Dictated by... Piper Sawant/rose marie TD: 11/08/2016 09:50 JOB #: [id number] Unit #: [id number] #: [id number] Patient: NERI CUNNINGHAM ALEXIS NOTES Page 1 of 1 X Win Webster MD PROGRESS NOTE
--- NOTE | ~2016-11-06 | PN ---
Unit #: [id number] #: [id number] Patient: NERI GRIDER [id number] [facility] [address] [place] [address] [id number] I MR#: [id number] NAME: NERI GRIDER ROOM: P210 Age: 35 Sex: M Admission Date: 11/06/2016 : 1980 Attending Physician: Win Webster M.D. Admitting Physician: Win Webster M.D. Primary Care Physician: Primary Care Physician Munira BROWN PROGRESS NOTES DATE 11/13/2016 DISCUSSION Neri is a 35-year-old male seen on 11/13/2016. The patient interviewed, chart reviewed. Obtained information from nursing staff. The patient's vital signs stable. Mood sad, dysphoric, isolative, guarded, flat affect. Feeling of hopelessness, passive SI. Complete review of systems unremarkable. MENTAL STATUS EXAMINATION General appearance, the patient dressed in hospital attire. Attention span and concentration fair. Oriented to time, place and person. Mood and affect sad, dysphoric. Speech monotone. Thought process concrete. The patient reported having suicidal ideation but denied any plan, withdrawn, flat, sad. Recent and remote memory poor. Insight and judgement poor. DIAGNOSES Mood disorder NOS Alcohol use disorder severe ASSESSMENT/PLAN Advise to continue with current medication and therapeutic protocol. If needed consider further adjustment of medication. Dictated by... Piper Sawant/bunny TD: 11/14/2016 15:01 JOB #: [id number] Unit #: [id number] #: [id number] Patient: NERI GRIDER PROGRESS NOTES Page 1 of 1 X Win Webster MD PROGRESS NOTE
[2016-11-07 09:41] LABS: BASOPHIL# 0.1 X10e3 (0-0.3); BASOPHIL% 0.8 % (0-2.5); EOSINOPHIL# 0.3 X10e3 (0-0.7); EOSINOPHIL% 3.4 % (0.0-7.0); HEMOGLOBIN 14.7 gm/dL (13.0-16.0); LYMPHOCYTE# 1.7 X10e3 (1.0-3.5); LYMPHOCYTE% 19.6 % (17.0-45.0); MEAN CELL VOLUME 97.1 FL (83-96); MEAN CORPUSCULAR HEMOGLOBIN 31.7 PG (28-34); MEAN CORPUSCULAR HGB CONC 32.7 g/dL (30-36); MEAN PLATELET VOLUME 9.1 FL (6.5-11.5); MONOCYTE% 11.8 % (3.0-12.0); NEUTROPHIL# 5.5 X10e3 (1.5-7.1); NEUTROPHIL% 64.4 % (40-75); PLATELET COUNT 197 X10e3 (140-420); RED BLOOD COUNT 4.64 X10e (3.90-5.60); RED CELL DISTRIBUTION WIDTH 14.4 % (11.0-15.5); WHITE BLOOD COUNT 8.5 X10e3 (4.0-10.5)
[2016-11-07 09:45] LABS: DIFF IND NO
[2016-11-07 10:03] LABS: ALBUMIN SERUM 3.4 g/dL (3.5-5.0); BILIRUBIN,TOTAL 0.5 mg/dL (0.2-2.0); BUN/CREATININE RATIO 17.27; CALCIUM SERUM 9.1 mg/dL (8.4-10.2); CREATININE SERUM 1.1 mg/dL (0.6-1.4); GLOM FILT RATE Estimated 85.9 mL/min (>60); POTASSIUM 4.8 mmol/L (3.5-5.1); PROTEIN TOTAL SERUM 5.8 g/dL (6.0-8.3)
[2016-11-08 09:35] LABS: URINE APPEARANCE CLEAR; URINE BILIRUBIN NEG (NEG); URINE BLOOD NEG (NEG); URINE COLOR DK YELLOW; URINE GLUCOSE NEG (NEG); URINE KETONE NEG (NEG); URINE LEUKOCYTE ESTERASE NEG (NEG); URINE NITRATE NEG (NEG); URINE PROTEIN NEG (NEG); URINE SPECIFIC GRAVITY 1.009 (1.003-1.035); URINE UROBILINOGEN 0.2 MG/DL (NEG)
[2016-11-08 10:25] LABS: AMPHETAMINE NEG (NEG); BARBITURATES NEG (NEG); BENZODIAZEPINES NEG (NEG); COCAINE NEG (NEG); MARIJUANA NEG (NEG); OPIATES NEG (NEG); TRICYCLIC ANTIDEPRESSANTS NEG (NEG); U METHADONE NEG (NEG)
== END 2016-11-15 15:20 | disposition home or self-care (01) | DRG 885 ==
LOC: P2S 15:48
PROVIDERS: Psychiatry & Neurology Psychiatry
PROC: HZ2ZZZZ Detoxification Services for Substance Abuse Treatment (ICD-10-PCS; principal; 2016-11-06)
DX: F33.2 Major depressive disorder, recurrent severe without psychotic features (principal); R45.851 Suicidal ideations; F39 Unspecified mood [affective] disorder; F41.9 Anxiety disorder, unspecified; F40.01 Agoraphobia with panic disorder; G40.909 Epilepsy, unspecified, not intractable, without status epilepticus; F10.20 Alcohol dependence, uncomplicated; F17.210 Nicotine dependence, cigarettes, uncomplicated; K21.9 Gastro-esophageal reflux disease without esophagitis
CPT/HCPCS: 80053; 80307; 81003; 85025